=== PATIENT | female | born 1985 | race African-American/Black ===

== ENCOUNTER 2019-03-18 22:39 | Emergency (ER) | payer OTHER ==
[~2019-03-18] VITALS: Ht 160 cm; Wt 91.2 kg
[~2019-03-18 22:39] MED LIST: ADVIL100 M2; APAP500 PO; BACTRIM DS TAB1 EACH PO; CIPROFLOXIN HC2.5 M1 OPHTHALMIC; COLACE 100 MG100 MG PO; CYCLOBENZAPRINE5 MG PO; DERMOPLAST SPRA56 ML; FAMOTIDINE; FLEXERIL PO; HYDROCORTISONE30 G9 RE; IBUPROFEN 600600 M1; IBUPROFEN 800800 M1 PO; IBUPROFEN 800800 MG PO; IRON325 PO; LO LOESTRIN FE1 EACH; LOESTRIN 24 FE1 EACH PO; LOPERAMIDE 2 MG2 M1 PO; MACROBID 100 M100 M1 PO; NAPROSYN500 MG PO; NOHOMEMEDICATIONS; NORCO 5-325 TA1 EACH PO; NORFLEX100 MG PO; PRENATAL; REGLAN 10 MG TA10 MG PO; TOBREX5 ML OPHTHALMIC; TUCKS MEDICATE1 EAC1; ULTRAM 50MG TAB50 MG PO; ZANTAC 150MG T150 M1 PO; ZOFRAN4 MG PO; ZPAK PO
[2019-03-18] MEDS ORDERED: IRON325 M1 PO (22:57)
[2019-03-18] MEDS ORDERED: PRENATAL (23:14)
[2019-03-19 00:37] LABS: URINE BILIRUBIN NEGATIVE (Negative); URINE BLOOD NEGATIVE (Negative); URINE CLARITY CLEAR; URINE COLOR YELLOW; URINE GLUCOSE-RANDOM* NEGATIVE (Negative); URINE KETONES TRACE (Negative); URINE NITRITE-REFLEX NEGATIVE (Negative); URINE PROTEIN (DIPSTICK) NEGATIVE (Negative); URINE SPECIFIC GRAVITY <= 1.005 (1.005-1.035); URINE UROBILINOGEN 0.2 E.U./dl (0.2-1.0)
[2019-03-19 00:40] LABS: URINE LEUKOCYTES-REFLEX 1+ (Negative)
[2019-03-19 01:14] LABS: BACTERIA-REFLEX 1-9 Few /HPF (None Seen); CASTS None Seen /LPF (None Seen); CRYSTALS None Seen /LPF (None Seen); MUCUS 0-3 Light strn/LPF (None Seen); SQUAMOUS 4-10 Moderate /LPF (0-3); URINE RBC 0-2 Rare /HPF (0-2); URINE WBC-REFLEX 6-15 Few /HPF (0-5)
[2019-03-19] MEDS ORDERED: KEFLEX500 M1 PO (01:22)
[2019-03-19 01:39] VITALS: BP 96/53
== END 2019-03-19 01:30 | disposition home or self-care (01) ==
LOC: ER 22:39
PROVIDERS: Emergency Medicine
DX: O23.43 Unspecified infection of urinary tract in pregnancy, third trimester (principal); F41.9 Anxiety disorder, unspecified; Z88.2 Allergy status to sulfonamides; Z88.8 Allergy status to other drugs, medicaments and biological substances; Z3A.30 30 weeks gestation of pregnancy

== ENCOUNTER 2019-05-21 09:00 | Emergency (ER) | payer OTHER ==
[~2019-05-21] VITALS: Ht 160 cm; Wt 88.5 kg
[~2019-05-21 09:00] MED LIST changes: +IRON325 M1 PO; +KEFLEX500 M1 PO
[2019-05-21] MEDS ORDERED: TESSALON PERLE100 MG PO (10:29)
[2019-05-21 10:47] VITALS: BP 102/82
== END 2019-05-21 10:54 | disposition home or self-care (01) ==
LOC: ER 09:00
DX: J02.8 Acute pharyngitis due to other specified organisms (principal); B97.89 Other viral agents as the cause of diseases classified elsewhere; F41.9 Anxiety disorder, unspecified; Z88.1 Allergy status to other antibiotic agents; Z88.2 Allergy status to sulfonamides